=== PATIENT | female | born 1955 | race Caucasian/White ===

== ENCOUNTER 2017-07-05 17:44 | Observation (INO) ==
--- NOTE | 2017-07-05 18:46 | XRay Report ---
Portable chest July 05, 2017 1826 hours Indication shortness of breath Comparison images dated January 17, 2017 Findings: Cardiomediastinal contours are stable with sternotomy wires No change in pacemaker placement. Lungs are clear bilaterally. No acute osseous abnormalities. Impression: No acute cardiopulmonary findings PROCEDURE INTERPRETED AT [facility] DEPARTMENT OF RADIOLOGY Final Report Signed by: Juan Miller
[2017-07-05 19:42] LABS: Basophils % 0.7 % (0.0-0.8); Eosinophils # 0.1 10*3/uL (0.0-0.87); Eosinophils % 2.4 % (0.00-10.9); Hematocrit 28.1 VOL% (35.7-47.0); Hemoglobin 8.2 GM/DL (12.0-16.0); Immature Granulocytes % 0.2 %; Immature Granulocytes Absolute 0.01 #; Lymphocytes # 1.3 10*3/uL (1.4-4.0); Lymphocytes % 29.5 % (21.3-54.2); Mean Corpuscular HGB Conc 29.2 GM/DL (32-36); Mean Corpuscular Hemoglobin 19 PG (27-34); Mean Corpuscular Volume 64.2 FL (87-102); Monocytes # 0.3 10*3/uL (0.11-0.8); Neutrophils # 2.7 10*3/uL (1.4-7.4); Neutrophils % 60.2 % (38.7-73.9); Platelet Count 209 T/CUMM (130-400); Red Blood Count 4.38 MC/CUMM (3.8-5.5); Red Cell Distribution Width 22.4 % (9.3-17.3); White Blood Count 4.5 T/CUMM (4-12)
[2017-07-05 20:03] LABS: Apearance,Urine CLEAR (Clear); Bilirubin,Urine Negative (Negative); Blood, Urine Small mg/dL (Negative); Glucose,Urine (UA) Negative (Negative); Hyaline Casts,Urine 11 /LPF (0-3); Ketones,Urine Negative (Negative); Mucus,Urine Occasional /LPF (Occasional); Nitrite,Urine Negative (Negative); Protein,Urine Negative; RBC,Urine 3 /HPF (0-4); Squamous Epithelial Cell,Urine Occasional /HPF (0-10); Urine Color Yellow (Yellow); Urine Urobilinogen < 2.0 EU/DL (0.2-1.0); WBC,Urine 2 /HPF (0-6)
[2017-07-05 20:12] LABS: Alanine Aminotransferase 13 U/L (13-56); Albumin 3.6 G/DL (3.4-5.0); Alkaline Phosphatase 69 U/L (45-117); Aspartate Amino Transferase 16 U/L (0-37); Bilirubin,Total < 0.39 MG/DL (0.2-1.0); Blood Urea Nitrogen 31 MG/DL (7-18); Calcium 8.7 MG/DL (8.5-10.1); Glucose 98 MG/DL (74-106); Magnesium 2.3 MG/DL (1.8-2.4); Osmolality,Calculated 292.8 MOS/KG (273-304); Potassium 3.9 MMOL/L (3.5-5.1); Sodium 144 MMOL/L (136-145); Total Protein 6.8 G/DL (6.4-8.3)
--- NOTE | 2017-07-05 20:42 | Emergency Department Note ---
Bubba Cueto Brooke, am scribing for, and in the presence of, Sanjay Chino MD 19:01. Matti Cueto Frederick, MD, personally performed the services described in this documentation, ascribed by Ritu Mac in my presence, and it is both accurate and complete . Arrival - Arrival Chief Complaint: Fall Stated Complaint: s/f fell on pacemaker site.can hardly move Lt side ED Nursing Triage Note: c/o falling on pacemaker, weakness, and chest pain since falling ealier today. Mode of Arrival: Wheelchair Limitations: No Limitations Source: Patient, Significant other (), RN Notes Reviewed Time Seen by Provider: 07/05/17 18:41 - History of Present Illness HPI Narrative: Patient is a 61 year old female who presents to the ED with c/o left chest pain , left hip pain, and left knee pain. Patient says she has been having frequent falls since Wednesday. Patient says on the first fall, she was on the top of her stairs and lost her balance and feel down seven concrete stairs. She says she landed face down onto the concrete. She immediately started having pain where her pacemaker is located, in the left chest. She say she screamed, in pain, when she feel. She says her left breast is very tender and she "can't stand for it to be touched." She says there is some edema around the pacemaker. She also hurt her left hip and left knee when she feel. She says there is some edema to the left knee. When she finally got up, she says she "started spinning, and as she was walking into her living room, from outside, and feel again. Patient says she also feel two times this morning and almost feel while in the waiting room. She denies hitting her head with any of the falls. Her states that "she starts shaking" and then "goes out" prior to the falls. Patient states "I think this is happening when I'm nervous." She has been taking Ibuprofen for the pain. Patient has PMHx of afib, CAD, depression, migraines, seizures, glaucoma, and back/neck problems. Her Casing Builder is Dr. So. The pacemaker was placed eight months ago. Onset (ago): day(s) (3) Allergies/Adverse Reactions: Allergies Allergy/AdvReac Type Severity Reaction Status Date / Time cephalexin [From Keflex] Allergy Intermediate RASH Verified 07/05/17 17:55 atorvastatin [From Lipitor] AdvReac Intermediate Gastrointestinal Verified 07/05 17:55 Upset ranolazine [From Ranexa] AdvReac Intermediate Confusion Verified 07/05/17 17:55 Home Medications: Home Medications Medication Instructions Recorded Confirmed Type Aspirin EC Tab 81 mg PO DAILY #30 tablet 08/20/16 05/04/17 Rx Pantoprazole Tab [Protonix Tab] 40 mg PO DAILY #30 tablet 08/20/16 05/04/17 Rx Clorazepate [Tranxene] 3.75 mg PO BID #30 tablet 01/17/17 05/04/17 Rx Ketorolac Tab [Toradol Tab] 10 mg PO Q8H #14 tablet 05/05/17 Rx Review of System - Review of System 12 point system: reviewed and no additional remarkable complaints except as stated - Review of System Constitutional: Absent: fever Respiratory: Absent: respiratory distress Cardiovascular: Present: chest pain (left- pacemaker site) Musculoskeletal: Present: other (left knee and hip pain) Skin: Absent: rash Medical,Surgical,& Family Hx - Medical History Cardio: History of: CAD (status post CABG 3S/P CABG x 3 10 - 11 years prior), Pacemaker No history of: [place] Psychological: History of: Depression Neurology: History of: Migraine, Seizures (10/2015) No history of: TIA HEENT: History of: Glaucoma Endocrine: No history of: Diabetes Mellitus (IDDM), Dyslipidemia Rheumatology: No history of;: Fibromyalgia Gastrointestinal: History of: GI Problems Musculoskeletal: History of: Back/Neck Problems Hematology: No history of: Blood Transfusion Reaction, Clotting Problems Reproductive: No history of: Breast Cancer - Surgical History Cardiac Surgeries: Sugical HX of: Cardiac Catheterization, Cardiac Surgery Thoracic Surgeries: Patient denies;: Organ Transplant, Lobectomy Neurologic Surgeries: Patient denies: Neurologic Surgery Abdominal Surgeries: Surgical HX of: Abdominal Surgery, Appendectomy, Cholecystectomy, Colonoscopy, EGD, Hernia Repair Reproductive Surgeries: Surgical HX of;: Hysterectomy - Family History Family History: Reports;: Family Heart Disease, Family Stroke - Social History Smoking Status: Current every day smoker Frequency of Alcohol Use: None Type of Drug Use: None Exam Vital Signs: Vital Signs Temperature 99 F 07/05/17 18:33 Pulse Rate 69 07/05/17 18:33 Respiratory Rate 20 07/05/17 18:33 Blood Pressure 152/50 07/05/17 18:33 O2 Sat by Pulse Oximetry 100 07/05/17 17:51 - General General appearance: alert, in no apparent distress - Head Head exam: Present: atraumatic, normocephalic - Eye Eye exam: Present: normal appearance, PERRL, EOMI - ENT ENT exam: Present: normal exam - Neck Neck exam: Present: normal inspection - Chest Chest inspection: Present: symmetric chest wall rise, tenderness (slight tenderness to the left chest- pacemaker site ) - Respiratory Respiratory exam: Present: normal lung sounds bilaterally - Cardiovascular Cardiovascular exam: Present: regular rate, normal rhythm, normal heart sounds - Abdominal Exam Abdominal exam: Present: soft, normal bowel sounds. Absent: distention, tenderness - Extremities Exam Extremities exam: Present: normal inspection - Back Exam Back exam: Present: normal inspection - Neurological Exam Neurological exam: Present: alert, oriented X3 - Psychiatric Psychiatric exam: Present: normal affect, normal mood - Skin Skin exam: Present: warm, dry, intact, normal color, other (No edema, erythema, or increased temperature to left chest- pacemaker site.) Results - Labs CBC & BMP: 07/05/17 19:16 07/05/17 19:16 Lab Results: I have reviewed the patients labs Labs: Laboratory Tests 02/26/16 02/26/16 07/05/17 00:00 01:15 19:16 WBC 4.5 RBC 4.38 Hgb 8.2 L Hct 28.1 L MCV 64.2 L MCH 19 L MCHC 29.2 L RDW 22.4 H Plt Count 209 MPV 10.0 Neut % (Auto) 60.2 Lymph % (Auto) 29.5 [place] % (Auto) 7.0 Eos % (Auto) 2.4 Baso % (Auto) 0.7 Neut # (Auto) 2.7 Lymph # (Auto) 1.3 L [place] # (Auto) 0.3 Eos # (Auto) 0.1 Baso # (Auto) 0.0 Immature Gran % 0.2 Nucleated RBC % 0.0 Immature Gran # 0.01 Nucleated RBCs # 0.00 Immature Plt Fraction 2.5 INR PT Patient/Control Mix ABG pCO2 24.0 L ABG pO2 136.0 H ABG HCO3 17.2 L ABG Total CO2 13.8 L ABG Base Excess -9.0 L Chloride 121 H Carbon Dioxide 16 L BUN 29 H Creatinine 1.25 H BUN/Creatinine Ratio 23.00 H Calcium 7.8 L Globulin 3.6 H Albumin/Globulin Ratio 0.9 L Urine Color Urine Appearance Urine pH Ur Specific [place] Urine Protein Urine Glucose (UA) Urine Ketones Urine Blood Urine Nitrate Urine Bilirubin Urine Urobilinogen Urine Leukocytes Urine RBC Urine WBC Ur Squamous Epith Cells Hyaline Casts Urine Mucus Ur Culture Indicated? 07/05/17 07/05/17 19:16 19:16 WBC RBC Hgb Hct MCV MCH MCHC RDW Plt Count MPV Neut % (Auto) Lymph % (Auto) [place] % (Auto) Eos % (Auto) Baso % (Auto) Neut # (Auto) Lymph # (Auto) [place] # (Auto) Eos # (Auto) Baso # (Auto) Immature Gran % Nucleated RBC % Immature Gran # Nucleated RBCs # Immature Plt Fraction INR 1.0 PT Patient/Control Mix 11.0 ABG pCO2 ABG pO2 ABG HCO3 ABG Total CO2 ABG Base Excess Chloride Carbon Dioxide BUN Creatinine BUN/Creatinine Ratio Calcium Globulin Albumin/Globulin Ratio Urine Color Yellow Urine Appearance Clear Urine pH 5.0 Ur Specific [place] 1.020 Urine Protein Negative Urine Glucose (UA) Negative Urine Ketones Negative Urine Blood Small Urine Nitrate Negative Urine Bilirubin Negative Urine Urobilinogen < 2.0 H Urine Leukocytes Negative Urine RBC 3 Urine WBC 2 Ur Squamous Epith Cells Occasional Hyaline Casts 11 Urine Mucus Occasional Ur Culture Indicated? Not indicated Laboratory Tests 07/05/17 07/05/17 19:16 19:16 Sodium 144 Potassium 3.9 Chloride 118 H Carbon Dioxide 21 Anion Gap 8.9 BUN 31 H Creatinine 1.10 H GFR Calculation 41 BUN/Creatinine Ratio 28.00 H Glucose 98 Calculated Osmolality 292.8 Calcium 8.7 Magnesium 2.3 Total Bilirubin < 0.39 AST 16 ALT 13 Alkaline Phosphatase 69 Total Protein 6.8 Albumin 3.6 Globulin 3.2 Albumin/Globulin Ratio 1.1 Prolactin 8.1 - Diagnostic Findings Procedure: Chest x-ray: report reviewed by me (No acute cardiopulmonary findings.)
[2017-07-05] MEDS ORDERED: CLORAZEPATE 3.75 MG TABLET PO SCH (21:30)
[2017-07-05 21:42] LABS: Hypochromasia 1+; Ovalocytes Few; Poikilocytosis 1+; Tear Drop Cells Few
[2017-07-05 21:43] LABS: Microcytosis 2+; Platelet Estimate Normal
--- NOTE | 2017-07-06 05:56 | EKG Report ---
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
[2017-07-06] MEDS ORDERED: DOCUSATE SODIUM 100 MG CAPSULE PO PRN (08:43)
[2017-07-06] MEDS ORDERED: guaiFENesin/DM ER 600-30 MG TABLET PO PRN (08:43)
[2017-07-06] MEDS ORDERED: ONDANSETRON 4 MG/2 ML VIAL IV PRN (08:43)
[2017-07-06] MEDS ORDERED: diphenhydrAMINE CAP 25 MG CAPSULE PO PRN (08:43)
[2017-07-06] MEDS ORDERED: SODIUM CHLORIDE 0.9% 1,000 ML IV ONE (08:43)
[2017-07-06] MEDS ORDERED: MORPHINE 2 MG/1 ML SYRINGE IV PRN (08:43)
[2017-07-06] MEDS ORDERED: PROMETHAZINE 25 MG TABLET PO PRN (08:43)
[2017-07-06] MEDS ORDERED: ACETAMINOPHEN 325 MG TABLET PO PRN ×2 (08:43)
--- NOTE | 2017-07-06 08:57 | Hospitalist History & Physical ---
Assessment and Plan - Time spent with patient Time spent with patient: Greater than 30 minutes (1) CAD (coronary artery disease) Status: Chronic Assessment and plan: 61-year-old white female with history of CAD status post CABG, anxiety, GERD, esophageal stricture, and pacemaker placement admitted by the hospitalist service status post fall with left wall atypical chest pain. We will go ahead and consult cardiology for pacemaker interrogation. Patient did state there was something wrong with the leads on her last admission that she never followed up for. Will also get a left shoulder x-ray to rule out bony abnormality due to her increased pain and decreased shoulder range of motion. Consult physical therapy for evaluation due to patient's complaints of generalized weakness and bilateral upper and lower extremity shakiness causing her to fall. Also checking orthostatics to see if this could be a cause of her weakness and falls. Will control her anxiety with some as needed Ativan, control pain with mild narcotic and simultaneous nausea medication. Will await cardiology's recommendation and if all goes well she could possibly be discharged home later today. Dr. Lee we will see and examine patient and further recommendations to follow. Current Visit: No (2) Tobacco abuse Status: Chronic Current Visit: No (3) Atypical chest pain Status: Resolved Current Visit: No (4) Pacemaker Problem details: BSC, EOL DDD PM Status: Chronic Current Visit: No (5) Hypotension Status: Resolved Current Visit: No (6) Anxiety Status: Chronic Current Visit: No (7) Elevated serum creatinine Status: Acute Current Visit: No History of Present Illness Chief complaint: Fall with left chest pain History of present illness: Ms. Raza is a 61 year old white female with history of CAD status post CABG, GERD, esophageal strictures, anxiety, status post pacemaker placement presenting to the ED with right chest wall pain status post fall. Patient states over the last month she has had increasing weakness and jittery feelings in her upper and lower extremities to the point where she has to sit on the floor or else she will fall. She states she does not lose consciousness or does not have dizziness. She denies any hematemesis or hematochezia. She states a day and a half ago she was walking up the stairs when she got jittery and she fell and tumbled down the stairs. She states both of her knees hurt and the biggest complaint is her left chest wall where her pacemaker was placed. It hurts her to take a deep breath or lift her arms above chest height. Patient has seen Dr. Collazo in the past and was supposed to follow- up in [place] but she states she is not returning to [place] and would like to be plugged back in with Dr. Collazo's group. She also states there was something wrong with her pacemaker last time she was here and she was supposed to get it fixed and never followed up. Upon exam, patient is awake and alert. She is afebrile and her vital signs are stable. She does have some mild hypotension this morning. She is anemic at 8.2/28.1, creatinine mildly elevated at 1.1, UA and drug screen are negative. Patient has tenderness around the pacemaker with no signs of edema or erythema. She does have pain with deep breathing and with left arm elevation above 80. Patient's home medications have been reconciled and she is a full code. Home Medications Medication Instructions Recorded Confirmed Type Pantoprazole Tab [Protonix Tab] 40 mg PO DAILY #30 tablet 08/20/16 07/06/17 Rx Allergies Allergy/AdvReac Type Severity Reaction Status Date / Time cephalexin [From Keflex] Allergy Intermediate RASH Verified 07/05/17 17:55 atorvastatin [From Lipitor] AdvReac Intermediate Gastrointestinal Verified 07/05 17:55 Upset ranolazine [From Ranexa] AdvReac Intermediate Confusion Verified 07/05/17 17:55 Medical,Surgical,& Family Hx - Medical History Cardio: History of: CAD (status post CABG 3S/P CABG x 3 10 - 11 years prior), Pacemaker No history of: [place] Psychological: History of: Depression Neurology: History of: Migraine, Seizures (10/2015) No history of: TIA HEENT: History of: Glaucoma Endocrine: No history of: Diabetes Mellitus (IDDM), Dyslipidemia Rheumatology: No history of;: Fibromyalgia Gastrointestinal: History of: GI Problems Musculoskeletal: History of: Back/Neck Problems Hematology: No history of: Blood Transfusion Reaction, Clotting Problems Reproductive: No history of: Breast Cancer - Surgical History Cardiac Surgeries: Sugical HX of: Cardiac Catheterization, Cardiac Surgery Thoracic Surgeries: Patient denies;: Organ Transplant, Lobectomy Neurologic Surgeries: Patient denies: Neurologic Surgery Abdominal Surgeries: Surgical HX of: Abdominal Surgery, Appendectomy, Cholecystectomy, Colonoscopy, EGD, Hernia Repair Reproductive Surgeries: Surgical HX of;: Gynecologic Surgery, Hysterectomy - Family History Family History: Reports;: Family Heart Disease, Family Stroke - Social History Smoking Status: Current every day smoker Frequency of Alcohol Use: None Type of Drug Use: None Marital Status: Lives With:: Spouse Functional capacity: independent ambulation 12 point system: reviewed and no additional remarkable complaints except as stated Exam - Constitutional Vitals: Period Temp Pulse Resp BP Sys/Street Pulse Ox Last 24 Hr 97.2 F-99.0 F 60-69 16-20 88-152/46-62 94-100 Exam: 61-year-old white female, no acute distress, alert and oriented Extraocular movements intact Mucous membranes dry, tongue midline Neck without adenopathy Chest clear to auscultation bilaterally, tenderness at pacemaker site, no erythema, no edema CV regular rate and rhythm no murmurs rubs or gallops Abdomen scaphoid, nontender Pelvis nontender Extremities with no edema, no bruising noted at the knees, special tests negative, good distal pulses Conversation is rational Results - Labs CBC & BMP: 07/05/17 19:16 07/05/17 19:16 Lab Results: I have reviewed the past 24 hour labs - Impressions EKG was supraventricular rhythm, electronic atrial pacemaker, RSR in V1/V2 consistent with right ventricular conduction delay - Diagnostic Findings Procedure: Chest x-ray: report reviewed by me (No acute cardiopulmonary findings )
[2017-07-06] MEDS ORDERED: PANTOPRAZOLE 40 MG TABLET PO SCH (09:00)
[2017-07-06] MEDS ORDERED: ASPIRIN EC 81 MG TABLET PO SCH (09:00)
[2017-07-06 09:01] LABS: Troponin I Only 0.019 NG/ML (0.00-0.045)
--- NOTE | 2017-07-06 09:34 | XRay Report ---
Exam: XR shoulder 2V LT Date: 07/06/2017 8:48 AM Indication: Left shoulder pain secondary to fall Comparison: 07/06/2017 Technical: Internal/external rotation no Y scapular view Findings: Mild degenerative change present AC joint the clavicle and humeral head scapula and adjacent ribs are intact. Previous sternotomy wires are present and cardiac pacing device. ASVD is present. Mild degenerative changes present the AC joint. Impression: 1. Mild degenerative arthritic changes AC joint 2. No fracture dislocation 3. Cardiac pacing device and sternotomy wires present. ASVD is present. PROCEDURE INTERPRETED AT [facility] DEPARTMENT OF RADIOLOGY Final Report Signed by: Dr. Hemant Owusu
[2017-07-06] MEDS: ENOXAPARIN 40 MG/0.4 ML SYRINGE SUBCUT SCH (10:01)
[2017-07-06] MEDS: PANTOPRAZOLE 40 MG TABLET PO SCH (10:01)
[2017-07-06] MEDS: NICOTINE 21 MG/24 HR PATCH TRANSDERM PRN (10:18)
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
[2017-07-06] MEDS: SODIUM CHLORIDE 0.9% 1,000 ML IV SCH ×2 (11:25→21:45)
[2017-07-06] MEDS ORDERED: LORazepam 0.5 MG TABLET PO PRN (12:20)
[2017-07-06 14:06] LABS: Basophils % 0.7 % (0.0-0.8); Eosinophils # 0.2 10*3/uL (0.0-0.87); Eosinophils % 5.2 % (0.00-10.9); Hematocrit 25.1 VOL% (35.7-47.0); Hemoglobin 7.2 GM/DL (12.0-16.0); Lymphocytes # 0.9 10*3/uL (1.4-4.0); Lymphocytes % 30.3 % (21.3-54.2); Mean Corpuscular HGB Conc 28.7 GM/DL (32-36); Mean Corpuscular Hemoglobin 19 PG (27-34); Mean Corpuscular Volume 64.4 FL (87-102); Mean Platelet Volume 9.9 FL (9.6-12.0); Monocytes # 0.2 10*3/uL (0.11-0.8); Monocytes % 6.2 % (1.7-12.7); Neutrophils # 1.8 10*3/uL (1.4-7.4); Neutrophils % 57.6 % (38.7-73.9); Platelet Count 183 T/CUMM (130-400); Red Cell Distribution Width 22.5 % (9.3-17.3); White Blood Count 3.1 T/CUMM (4-12)
[2017-07-06 15:52] LABS: Sedimentation Rate-Westergren 9 MM/HR (0-30)
[2017-07-06 15:53] LABS: Vitamin B12 288 PG/ML (211-911)
[2017-07-06 16:08] LABS: Barbiturates Screen,Urine Negative (Negative); Benzodiazepines Screen,Urine Negative (Negative); Cannabinoid Screen,Urine Negative (Negative); Opiate Screen,Urine Positive (Negative); Phencyclidine Screen,Urine Negative (Negative)
--- NOTE | 2017-07-06 16:57 | Ultrasound Report ---
Exam:US carotid duplex BI Date:07/06/2017 1:50 PM Indication: Syncope Color Doppler, wave form analysis, and grayscale analysis of the cervical carotid arteries was performed. There is moderate partially calcified plaque in the right carotid bulb. Waveform analysis shows proper directional flow of the cervical carotid arteries. There is antegrade flow in either vertebral artery. There is elevated peak systolic velocity in the right internal carotid artery with some mild spectral broadening compatible with 50-79% diameter reduction narrowing. There is no significantly elevated peak systolic velocity on the left. Impression: There is 50-79% diameter reduction narrowing of right internal carotid artery using indirect NASCET criteria. There is 16-49% diameter reduction narrowing of the left internal carotid artery. Right Side Flow velocities centimeters per second Common carotid artery:116.0 Proximal ICA:162.4 Distal ICA:99.7 External carotid artery:76.4 Vertebral artery:87.3 ICA/CCA ratio:1.4 Measurements in millimeters Distal ICA: 4.4 Left SIde Flow velocities centimeters per second Common carotid artery 106.6 Proximal ICA:72.5 Distal ICA:127.5 External carotid artery:108.1 Vertebral artery:37.8 ICA/CCA ratio: 1.2 Measurements in millimeters Distal ICA: 4.1 Today studies were performed utilizing indirect NASCET criteria PROCEDURE INTERPRETED AT [facility] DEPARTMENT OF RADIOLOGY Final Report Signed by: Dr. Eugenia Tang
[2017-07-06] MEDS: ASPIRIN EC 81 MG TABLET PO SCH (18:05)
[2017-07-07] MEDS: SODIUM CHLORIDE 0.9% 1,000 ML IV SCH ×3 (04:40→21:05)
[2017-07-07 05:29] LABS: Basophils % 0.8 % (0.0-0.8); Eosinophils # 0.1 10*3/uL (0.0-0.87); Eosinophils % 5.4 % (0.00-10.9); Hematocrit 26.3 VOL% (35.7-47.0); Hemoglobin 7.5 GM/DL (12.0-16.0); Lymphocytes # 1.1 10*3/uL (1.4-4.0); Lymphocytes % 45.4 % (21.3-54.2); Mean Corpuscular HGB Conc 28.5 GM/DL (32-36); Mean Corpuscular Hemoglobin 18 PG (27-34); Mean Corpuscular Volume 64.3 FL (87-102); Mean Platelet Volume 9.8 FL (9.6-12.0); Monocytes # 0.2 10*3/uL (0.11-0.8); Monocytes % 7.5 % (1.7-12.7); Neutrophils % 40.9 % (38.7-73.9); Platelet Count 147 T/CUMM (130-400); Red Blood Count 4.09 MC/CUMM (3.8-5.5); Red Cell Distribution Width 22.5 % (9.3-17.3); White Blood Count 2.4 T/CUMM (4-12)
[2017-07-07 05:59] LABS: Eosinophils 6 % (0-10); Giant Platelets Few; Hypochromasia 1+; Lymphocytes 39 % (20-55); Ovalocytes Slight; Platelet Estimate Normal; Segmented Neutrophils 51 % (50-85); Total Cells Counted 100
[2017-07-07 06:00] LABS: Microcytosis Slight
[2017-07-07 06:08] LABS: Risk Ratio 4.62; VLDL CHOLESTEROL 33.4 MG/DL
[2017-07-07 06:19] LABS: Calcium 7.5 MG/DL (8.5-10.1); Osmolality,Calculated 288.4 MOS/KG (273-304); Potassium 3.7 MMOL/L (3.5-5.1)
[2017-07-07] MEDS ORDERED: SODIUM CHLORIDE 0.9% 250 ML IV PRN ×2 (07:00→13:18)
--- NOTE | 2017-07-07 08:16 | Cardiology Progress Note ---
<Robina Bill - Last Filed: 07/07/17 09:54> Assessment and Plan (1) Atypical chest pain Status: Acute Assessment and plan: SEE PLAN OF CARE LISTED BELOW. Current Visit: Yes (2) Dehydration Status: Acute Assessment and plan: SEE PLAN OF CARE LISTED BELOW. Current Visit: Yes (3) Anemia Status: Chronic Assessment and plan: SEE PLAN OF CARE LISTED BELOW. Current Visit: Yes (4) Anxiety Status: Chronic Assessment and plan: SEE PLAN OF CARE LISTED BELOW. Current Visit: No (5) CAD (coronary artery disease) Status: Chronic Assessment and plan: SEE PLAN OF CARE LISTED BELOW. Current Visit: No (6) Pacemaker Problem details: BSC, EOL DDD PM Status: Chronic Assessment and plan: SEE PLAN OF CARE LISTED BELOW. Current Visit: No (7) Tobacco abuse Status: Chronic Assessment and plan: SEE PLAN OF CARE LISTED BELOW. Current Visit: No (8) Hypotension Status: Acute Assessment and plan: SEE PLAN OF CARE LISTED BELOW. Current Visit: Yes (9) Pre-syncope Status: Acute Assessment and plan: SEE PLAN OF CARE LISTED BELOW. 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 So SUMMARY Ms. Raza is a 61 year old female with a known history of coronary artery disease, who has seen Dr. Claudia So in the past. Patient has cardiac risk factors significant for: Known CAD (status post CABG 11 years ago in [facility]), sedentary lifestyle, family and tobaccoism. She has a past medical history of anxiety and pacemaker placement January 2016. Patient has not followed up with Dr. So in the clinic as instructed. Her last echocardiogram was performed January 2016 which revealed ejection fraction 60%. Grade 1 diastolic dysfunction. Moderate to severe TR and mild to moderate MR. Patient presented to [facility] with left-sided chest pain that occurred after falling at home. She confirms several episodes of presyncope. Upon arrival to the emergency department, she was noted to be hypotensive, anemic and dehydrated. Her anemia appears to be chronic. She was rehydrated with IV fluids. Her blood pressure has improved. Her chest pain is atypical in nature. Reproducible to light palpation. Consistent with musculoskeletal type pain. Successfully treated with pain medications. Patient 's pacemaker was interrogated yesterday afternoon per [employer] utility sales representative. Her device checked out fine. No arrhythmias noted the day of fall. She did have a short episode of nonsustained SVT July 03, 2017. 2016 Patient was seen and examined on the telemetry unit. She is doing well this morning. No complaints. She reports that her left-sided chest pain has greatly improved with [place]. Carotid ultrasound yesterday revealed 50-79% narrowing of her right internal carotid artery. Today, we will order carotid CTA. She continues to be anemic this morning. H&H 7.5 and 26.3. I suspect that this could possibly be dilutional. Stool negative for occult blood. Pacemaker was interrogated yesterday which checked out okay. No evidence of sustained arrhythmias noted the day of fall. Blood pressure has greatly improved with IV hydration. Orthostatic vital signs did not reveal any evidence of orthostatic hypotension. At this point, if patient's carotid CT checks out okay patient may be eligible for discharge later this afternoon. Patient has a given a follow-up appointment with Dr. Claudia So in 1 month with EKG and CBC. I will further discuss with Dr. So and await her additional recommendations. IMPRESSION AND PLAN 1. ATYPICAL CHEST PAIN - Reproducible. I suspect that this is musculoskeletal in nature. Secondary to patient's fall Wednesday evening. This is being treated with [place] per hospital medicine. 2. HISTORY OF CAD - Status post CABG 11 years ago in [facility]. Patient's blood pressure will not allow initiation of beta blockade. She has been noncompliant with lipid lowering agent in the past as this has caused her myalgias. I have checked a lipid panel. I have added low-dose aspirin. Recommend patient take this indefinitely. Historically, patient has had preserved ejection fraction. No need to repeat echocardiogram at this time. 3. TOBACCO ABUSE - Counseled patient on the importance of smoking cessation. 4. PACEMAKER - Chest x-ray reveals good pacemaker lead placement. No hematoma or trauma located to pacemaker pocket. Device was interrogated yesterday. No sustained arrhythmias noted the day of fall. However, she did have a short episode of nonsustained SVT July 03, 2017. Unfortunately, her blood pressure will not allow for initiation of beta blockade. This may be challenged on an outpatient basis. 5. ANXIETY - Stable at present. 6. HYPOTENSION - Improved with IV hydration. 7. PRESYNCOPE - I suspect that this could be related to her dehydration/ hypotension and anemia. Patient was treated with IV fluids. Blood pressure has improved this morning. Orthostatic vital signs were okay. Carotid ultrasound revealed 50-79% narrowing of her right internal carotid artery. Will order carotid CTA. Pacemaker was interrogated yesterday. No sustained arrhythmias noted the day of fall. However, she did have a short episode of nonsustained SVT July 03, 2017. Unfortunately, her blood pressure will not allow for initiation of beta blockade. This may be challenged on outpatient basis. 8. ANEMIA - This appears to be chronic. H&H 7.5 and 26.3. I suspect that this is dilutional. Stool negative for occult blood. I will defer further management/workup of this to attending. Patient may benefit from blood transfusion/GI evaluation. 9. DEHYDRATION - This has greatly improved with IV hydration. 10. RIGHT INTERNAL CAROTID ARTERY STENOSIS - Carotid ultrasound revealed 50-79 % narrowing to her right internal carotid artery. At this point, we will order CTA. 11. DYSLIPIDEMIA - Lipid panel has been reviewed. LDL 106. Patient is allergic to atorvastatin. I have initiated Zetia. Patient will need a repeat lipid panel in 4-6 weeks. Exam (Progress Note) - Constitutional Vitals: Period Temp Pulse Resp BP Sys/Street Pulse Ox Last 24 Hr 97.3 F-98.7 F 59-61 16-20 86-120/44-69 92-99 Exam: General: Appears well with no apparent distress. Pleasant and cooperative. Appears comfortable. HEENT: PERRL, normocephalic, atraumatic. Mucous membranes moist. No jaundice noted. Conjunctiva moist and clear, sclerae anicteric Neck: No JVD/HJR, no thyromegaly or lymphadenopathy noted. Soft right carotid bruit Cardiac: Regular rate and rhythm. Patient is tender to pacemaker site. No erythema. No edema. Lungs: Clear to auscultation without accessory muscle use to assist the respiratory pattern. Not requiring oxygen. Abdomen: Soft, bowel sounds normoactive. Nontender and nondistended. No abdominal bruit or thrill noted. No masses noted. Extremities: No clubbing, cyanosis noted. No edema noted. Upper extremity pulses 2+. Lower extremity pulses 2+. Capillary refill less than 3 seconds. Skin: No unusual lesions or rashes. No skin breakdown appreciated. Neuro: Awake, alert and oriented 3. Moves all extremities well without hemiparesis or paralysis. No essential tremor is appreciated. Result/EKG - Labs CBC & BMP: 07/07/17 04:22 07/07/17 04:22 Lab Results: I have reviewed the past 24 hour labs Labs: Laboratory Results - last 24 hr 07/06/17 07/06/17 07/06/17 08:18 13:57 13:57 WBC 3.1 L D RBC 3.90 Hgb 7.2 L Hct 25.1 L MCV 64.4 L MCH 19 L MCHC 28.7 L RDW 22.5 H Plt Count 183 MPV 9.9 Neut % (Auto) 57.6 Lymph % (Auto) 30.3 [place] % (Auto) 6.2 Eos % (Auto) 5.2 Baso % (Auto) 0.7 Neut # (Auto) 1.8 Lymph # (Auto) 0.9 L [place] # (Auto) 0.2 Eos # (Auto) 0.2 Baso # (Auto) 0.0 Total Counted Immature Gran % 0.0 Nucleated RBC % 0.0 Immature Gran # 0.00 Segmented Neutrophils Lymphocytes Monocytes Eosinophils Basophils Nucleated RBCs # 0.00 Platelet Estimate Giant Platelets Immature Plt Fraction 0.0 Hypochromasia Microcytosis Ovalocytes ESR Westergren 9 Absolute Retic 0.1 Percent Retic 1.6 H Retic Hgb Equivalent 18.9 L Sodium Potassium Chloride Carbon Dioxide Anion Gap BUN Creatinine GFR Calculation BUN/Creatinine Ratio Glucose Calculated Osmolality Calcium Magnesium Ferritin 3.2 L Total Creatine Kinase 185 CK-MB (CK-2) 1.0 Troponin I 0.019 Triglycerides Cholesterol LDL Cholesterol VLDL Cholesterol HDL Cholesterol Heart Disease Risk Ratio Vitamin B12 Folate Urine Opiates Screen Ur Barbiturates Screen Ur Phencyclidine Scrn U Amphetamine/Methamph U Benzodiazepines Scrn U Cocaine Metab Screen U Cannabinoids Screen LATOYA (IgG-AHG) LATOYA, Polyspecific 07/06/17 07/06/17 07/06/17 13:57 13:57 15:54 WBC RBC Hgb Hct MCV MCH MCHC RDW Plt Count MPV Neut % (Auto) Lymph % (Auto) [place] % (Auto) Eos % (Auto) Baso % (Auto) Neut # (Auto) Lymph # (Auto) [place] # (Auto) Eos # (Auto) Baso # (Auto) Total Counted Immature Gran % Nucleated RBC % Immature Gran # Segmented Neutrophils Lymphocytes Monocytes Eosinophils Basophils Nucleated RBCs # Platelet Estimate Giant Platelets Immature Plt Fraction Hypochromasia Microcytosis Ovalocytes ESR Westergren Absolute Retic Percent Retic Retic Hgb Equivalent Sodium Potassium Chloride Carbon Dioxide Anion Gap BUN Creatinine GFR Calculation BUN/Creatinine Ratio Glucose Calculated Osmolality Calcium Magnesium Ferritin Total Creatine Kinase CK-MB (CK-2) Troponin I Triglycerides Cholesterol LDL Cholesterol VLDL Cholesterol HDL Cholesterol Heart Disease Risk Ratio Vitamin B12 288 Folate 14.0 Urine Opiates Screen Positive H Ur Barbiturates Screen Negative Ur Phencyclidine Scrn Negative U Amphetamine/Methamph Negative U Benzodiazepines Scrn Negative U Cocaine Metab Screen Negative U Cannabinoids Screen Negative LATOYA (IgG-AHG) Negative LATOYA, Polyspecific Negative 07/07/17 07/07/17 07/07/17 04:22 04:22 04:22 WBC 2.4 L RBC 4.09 Hgb 7.5 L Hct 26.3 L MCV 64.3 L MCH 18 L MCHC 28.5 L RDW 22.5 H Plt Count 147 MPV 9.8 Neut % (Auto) 40.9 Lymph % (Auto) 45.4 [place] % (Auto) 7.5 Eos % (Auto) 5.4 Baso % (Auto) 0.8 Neut # (Auto) 1.0 L Lymph # (Auto) 1.1 L [place] # (Auto) 0.2 Eos # (Auto) 0.1 Baso # (Auto) 0.0 Total Counted 100 Immature Gran % 0.0 Nucleated RBC % 0.0 Immature Gran # 0.00 Segmented Neutrophils 51 Lymphocytes 39 Monocytes 2 Eosinophils 6 Basophils 2.0 H Nucleated RBCs # 0.00 Platelet Estimate Normal Giant Platelets Few Immature Plt Fraction 0.0 Hypochromasia 1+ Microcytosis Slight Ovalocytes Slight ESR Westergren Absolute Retic Percent Retic Retic Hgb Equivalent Sodium 147 H Potassium 3.7 Chloride 120 H Carbon Dioxide 18 L Anion Gap 12.7 BUN 9 Creatinine 0.60 GFR Calculation 77 BUN/Creatinine Ratio 15.00 Glucose 68 L Calculated Osmolality 288.4 Calcium 7.5 L Magnesium 2.0 Ferritin Total Creatine Kinase CK-MB (CK-2) Troponin I Triglycerides 167 H Cholesterol 171 LDL Cholesterol 106.0 VLDL Cholesterol 33.4 HDL Cholesterol 37 L Heart Disease Risk Ratio 4.62 Vitamin B12 Folate Urine Opiates Screen Ur Barbiturates Screen Ur Phencyclidine Scrn U Amphetamine/Methamph U Benzodiazepines Scrn U Cocaine Metab Screen U Cannabinoids Screen LATOYA (IgG-AHG) LATOYA, Polyspecific Specialty Discharge - Follow Up or Referrals Follow up with: Claudia So MD [Physician] - 1 Month (EKG, CBC ) <Claudia So - Last Filed: 07/07/17 13:12> Cardiology - PN: Subj Interval history: I have personally interviewed and examined the patient, reviewed the chart and discussed medical decision-making with practitioner Fly. I have read this note and agree with the documentation herein. From a cardiac standpoint she appears to be stable with reproducible left-sided musculoskeletal chest pain. Device interrogation overall reveals satisfactory function, she did have a brief episode of SVT on July 03. She has a chronically high RV threshold but RV paces less than 1% of the time so this is not a major concern. We are going to have to get her reestablished with the device clinic at the time of discharge. She continues to have some symptomatic anemia and tells me she is still dizzy when she goes to stand. Apparently she also has some intention tremors that are significant. While she is here were going to go ahead and obtain CT scan of the carotid arteries to better define the right-sided carotid disease in terms of whether it is moderate or severe. I personally discussed this case with Dr. Lee and she may benefit from transfusion due to symptomatic anemia. She is due for a colonoscopy and ultimately will need an outpatient workup of her anemia. She does have a leukopenia so this could also represent a possible marrow process. Exam (Progress Note) - Constitutional Vitals: Period Temp Pulse Resp BP Sys/Street Pulse Ox Last 24 Hr 97.3 F-99.0 F 59-61 16-20 102-120/44-69 92-99 Result/EKG - Labs CBC & BMP: 07/07/17 04:22 07/07/17 04:22 Labs: Laboratory Results - last 24 hr 07/06/17 07/06/17 07/06/17 13:57 13:57 13:57 WBC 3.1 L D RBC 3.90 Hgb 7.2 L Hct 25.1 L MCV 64.4 L MCH 19 L MCHC 28.7 L RDW 22.5 H Plt Count 183 MPV 9.9 Neut % (Auto) 57.6 Lymph % (Auto) 30.3 [place] % (Auto) 6.2 Eos % (Auto) 5.2 Baso % (Auto) 0.7 Neut # (Auto) 1.8 Lymph # (Auto) 0.9 L [place] # (Auto) 0.2 Eos # (Auto) 0.2 Baso # (Auto) 0.0 Total Counted Immature Gran % 0.0 Nucleated RBC % 0.0 Immature Gran # 0.00 Segmented Neutrophils Lymphocytes Monocytes Eosinophils Basophils Nucleated RBCs # 0.00 Platelet Estimate Giant Platelets Immature Plt Fraction 0.0 Hypochromasia Microcytosis Ovalocytes ESR W[place]gren 9 Absolute Retic 0.1 Percent Retic 1.6 H Retic Hgb Equivalent 18.9 L Sodium Potassium Chloride Carbon Dioxide Anion Gap BUN Creatinine GFR Calculation BUN/Creatinine Ratio Glucose Calculated Osmolality Calcium Magnesium Ferritin 3.2 L Triglycerides Cholesterol LDL Cholesterol VLDL Cholesterol HDL Cholesterol Heart Disease Risk Ratio Vitamin B12 288 Folate 14.0 Urine Opiates Screen Ur Barbiturates Screen Ur Phencyclidine Scrn U Amphetamine/Methamph U Benzodiazepines Scrn U Cocaine Metab Screen U Cannabinoids Screen LATOYA (IgG-AHG) LATOYA, Polyspecific 07/06/17 07/06/17 07/07/17 13:57 15:54 04:22 WBC RBC Hgb Hct MCV MCH MCHC RDW Plt Count MPV Neut % (Auto) Lymph % (Auto) [place] % (Auto) Eos % (Auto) Baso % (Auto) Neut # (Auto) Lymph # (Auto) [place] # (Auto) Eos # (Auto) Baso # (Auto) Total Counted Immature Gran % Nucleated RBC % Immature Gran # Segmented Neutrophils Lymphocytes Monocytes Eosinophils Basophils Nucleated RBCs # Platelet Estimate Giant Platelets Immature Plt Fraction Hypochromasia Microcytosis Ovalocytes ESR Westergren Absolute Retic Percent Retic Retic Hgb Equivalent Sodium Potassium Chloride Carbon Dioxide Anion Gap BUN Creatinine GFR Calculation BUN/Creatinine Ratio Glucose Calculated Osmolality Calcium Magnesium Ferritin Triglycerides 167 H Cholesterol 171 LDL Cholesterol 106.0 VLDL Cholesterol 33.4 HDL Cholesterol 37 L Heart Disease Risk Ratio 4.62 Vitamin B12 Folate Urine Opiates Screen Positive H Ur Barbiturates Screen Negative Ur Phencyclidine Scrn Negative U Amphetamine/Methamph Negative U Benzodiazepines Scrn Negative U Cocaine Metab Screen Negative U Cannabinoids Screen Negative LATOYA (IgG-AHG) Negative LATOYA, Polyspecific Negative 07/07/17 07/07/17 04:22 04:22 WBC 2.4 L RBC 4.09 Hgb 7.5 L Hct 26.3 L MCV 64.3 L MCH 18 L MCHC 28.5 L RDW 22.5 H Plt Count 147 MPV 9.8 Neut % (Auto) 40.9 Lymph % (Auto) 45.4 [place] % (Auto) 7.5 Eos % (Auto) 5.4 Baso % (Auto) 0.8 Neut # (Auto) 1.0 L Lymph # (Auto) 1.1 L [place] # (Auto) 0.2 Eos # (Auto) 0.1 Baso # (Auto) 0.0 Total Counted 100 Immature Gran % 0.0 Nucleated RBC % 0.0 Immature Gran # 0.00 Segmented Neutrophils 51 Lymphocytes 39 Monocytes 2 Eosinophils 6 Basophils 2.0 H Nucleated RBCs # 0.00 Platelet Estimate Normal Giant Platelets Few Immature Plt Fraction 0.0 Hypochromasia 1+ Microcytosis Slight Ovalocytes Slight ESR Westergren Absolute Retic Percent Retic Retic Hgb Equivalent Sodium 147 H Potassium 3.7 Chloride 120 H Carbon Dioxide 18 L Anion Gap 12.7 BUN 9 Creatinine 0.60 GFR Calculation 77 BUN/Creatinine Ratio 15.00 Glucose 68 L Calculated Osmolality 288.4 Calcium 7.5 L Magnesium 2.0 Ferritin Triglycerides Cholesterol LDL Cholesterol VLDL Cholesterol HDL Cholesterol Heart Disease Risk Ratio Vitamin B12 Folate Urine Opiates Screen Ur Barbiturates Screen Ur Phencyclidine Scrn U Amphetamine/Methamph U Benzodiazepines Scrn U Cocaine Metab Screen U Cannabinoids Screen LATOYA (IgG-AHG) LATOYA, Polyspecific
[2017-07-07] MEDS: ENOXAPARIN 40 MG/0.4 ML SYRINGE SUBCUT SCH (09:21)
[2017-07-07] MEDS: PANTOPRAZOLE 40 MG TABLET PO SCH (09:21)
[2017-07-07] MEDS: ASPIRIN EC 81 MG TABLET PO SCH (09:21)
--- NOTE | 2017-07-07 09:54 | Discharge Summary ---
Hospital Course - Time spent with patient Time with patient DS: Greater than 30 minutes Diagnosis - Discharge Diagnosis (1) CAD (coronary artery disease) Status: Chronic (2) Tobacco abuse Status: Chronic (3) Atypical chest pain Status: Acute (4) Pacemaker Status: Chronic (5) Hypotension Status: Acute (6) Anxiety Status: Chronic (7) Elevated serum creatinine Status: Acute Specialty Discharge - Follow Up or Referrals Follow up with: Claudia So MD [Physician] - 1 Month (EKG, CBC ) Discharge Plan - Discharge Medications No Action Pantoprazole Tab [Protonix Tab] 40 mg PO DAILY #30 tablet - Follow Up or Referral Follow Up: Claudia So MD [Physician] - 1 Month (EKG, CBC ) - Forms/Instructions Exam - Constitutional Vitals: Period Temp Pulse Resp BP Sys/Street Pulse Ox Last 24 Hr 97.3 F-98.7 F 59-61 16-20 102-120/44-69 92-99 Discharge Results Procedures and tests throughout hospitalization: Pending Orders 07/06/17 13:57 Anemia Profile Routine 07/06/17 17:10 Occult Blood, Stool Routine Labs on day of discharge: Labs from last 24 hours 07/07/17 07/07/17 07/07/17 04:22 04:22 04:22 WBC 2.4 L RBC 4.09 Hgb 7.5 L Hct 26.3 L MCV 64.3 L MCH 18 L MCHC 28.5 L RDW 22.5 H Plt Count 147 MPV 9.8 Neut % (Auto) 40.9 Lymph % (Auto) 45.4 [place] % (Auto) 7.5 Eos % (Auto) 5.4 Baso % (Auto) 0.8 Neut # (Auto) 1.0 L Lymph # (Auto) 1.1 L [place] # (Auto) 0.2 Eos # (Auto) 0.1 Baso # (Auto) 0.0 Total Counted 100 Immature Gran % 0.0 Nucleated RBC % 0.0 Immature Gran # 0.00 Segmented Neutrophils 51 Lymphocytes 39 Monocytes 2 Eosinophils 6 Basophils 2.0 H Nucleated RBCs # 0.00 Anemia Panel Interp Platelet Estimate Normal Giant Platelets Few Immature Plt Fraction 0.0 Hypochromasia 1+ Microcytosis Slight Ovalocytes Slight ESR Westergren Absolute Retic Percent Retic Retic Hgb Equivalent Hemoglobin A1 Hemoglobin A2 Hemoglobin C Hemoglobin D Hemoglobin E Hemoglobin F (ELP) Hemoglobin G Hemoglobin S Hgb ELP Interp Sodium 147 H Potassium 3.7 Chloride 120 H Carbon Dioxide 18 L Anion Gap 12.7 BUN 9 Creatinine 0.60 GFR Calculation 77 BUN/Creatinine Ratio 15.00 Glucose 68 L Calculated Osmolality 288.4 Calcium 7.5 L Magnesium 2.0 Ferritin Triglycerides 167 H Cholesterol 171 LDL Cholesterol 106.0 VLDL Cholesterol 33.4 HDL Cholesterol 37 L Heart Disease Risk Ratio 4.62 Vitamin B12 Folate Urine Opiates Screen Ur Barbiturates Screen Ur Phencyclidine Scrn U Amphetamine/Methamph U Benzodiazepines Scrn U Cocaine Metab Screen U Cannabinoids Screen LATOYA (IgG-AHG) LATOYA, Polyspecific 07/06/17 07/06/17 07/06/17 15:54 13:57 13:57 WBC RBC Hgb Hct MCV MCH MCHC RDW Plt Count MPV Neut % (Auto) Lymph % (Auto) [place] % (Auto) Eos % (Auto) Baso % (Auto) Neut # (Auto) Lymph # (Auto) [place] # (Auto) Eos # (Auto) Baso # (Auto) Total Counted Immature Gran % Nucleated RBC % Immature Gran # Segmented Neutrophils Lymphocytes Monocytes Eosinophils Basophils Nucleated RBCs # Anemia Panel Interp Platelet Estimate Giant Platelets Immature Plt Fraction Hypochromasia Microcytosis Ovalocytes ESR Westergren Absolute Retic Percent Retic Retic Hgb Equivalent Hemoglobin A1 Pending Hemoglobin A2 Pending Hemoglobin C Pending Hemoglobin D Pending Hemoglobin E Pending Hemoglobin F (ELP) Pending Hemoglobin G Pending Hemoglobin S Pending Hgb ELP Interp Pending Sodium Potassium Chloride Carbon Dioxide Anion Gap BUN Creatinine GFR Calculation BUN/Creatinine Ratio Glucose Calculated Osmolality Calcium Magnesium Ferritin Triglycerides Cholesterol LDL Cholesterol VLDL Cholesterol HDL Cholesterol Heart Disease Risk Ratio Vitamin B12 288 Folate 14.0 Urine Opiates Screen Positive H Ur Barbiturates Screen Negative Ur Phencyclidine Scrn Negative U Amphetamine/Methamph Negative U Benzodiazepines Scrn Negative U Cocaine Metab Screen Negative U Cannabinoids Screen Negative LATOYA (IgG-AHG) Negative LATOYA, Polyspecific Negative 07/06/17 07/06/17 13:57 13:57 WBC 3.1 L D RBC 3.90 Hgb 7.2 L Hct 25.1 L MCV 64.4 L MCH 19 L MCHC 28.7 L RDW 22.5 H Plt Count 183 MPV 9.9 Neut % (Auto) 57.6 Lymph % (Auto) 30.3 [place] % (Auto) 6.2 Eos % (Auto) 5.2 Baso % (Auto) 0.7 Neut # (Auto) 1.8 Lymph # (Auto) 0.9 L [place] # (Auto) 0.2 Eos # (Auto) 0.2 Baso # (Auto) 0.0 Total Counted Immature Gran % 0.0 Nucleated RBC % 0.0 Immature Gran # 0.00 Segmented Neutrophils Lymphocytes Monocytes Eosinophils Basophils Nucleated RBCs # 0.00 Anemia Panel Interp Pending Platelet Estimate Giant Platelets Immature Plt Fraction 0.0 Hypochromasia Microcytosis Ovalocytes ESR Westergren 9 Absolute Retic 0.1 Percent Retic 1.6 H Retic Hgb Equivalent 18.9 L Hemoglobin A1 Hemoglobin A2 Hemoglobin C Hemoglobin D Hemoglobin E Hemoglobin F (ELP) Hemoglobin G Hemoglobin S Hgb ELP Interp Sodium Potassium Chloride Carbon Dioxide Anion Gap BUN Creatinine GFR Calculation BUN/Creatinine Ratio Glucose Calculated Osmolality Calcium Magnesium Ferritin 3.2 L Triglycerides Cholesterol LDL Cholesterol VLDL Cholesterol HDL Cholesterol Heart Disease Risk Ratio Vitamin B12 Folate Urine Opiates Screen Ur Barbiturates Screen Ur Phencyclidine Scrn U Amphetamine/Methamph U Benzodiazepines Scrn U Cocaine Metab Screen U Cannabinoids Screen LATOYA (IgG-AHG) LATOYA, Polyspecific DS: Provider Date of admission: 07/05/17 21:22 Primary care physician: . No PCP Attending physician on admission: Sanjay Chino MD Consults: 07/05/17 22:59 Consult to Dietitian [CONS] Routine Reason for Dietitian: Dietary Consult 07/06/17 08:43 Consult to Physician [CONS] Routine Comment: pain in pacemaker from fall, frequent falls Consulting Provider: Cardiology - [facility] When should Consulting Provider be notified: Now Person Notified: Alyse Date Notified: 07/06/17 Time Notified: 09:55 07/06/17 08:46 Consult to Physical Therapy [CONS] Routine Reason for Physical Therapy: Evaluate and Treat 07/06/17 10:25 Consult to Occupational Therapy [CONS] Routine Reason for Occupational Therapy: Evaluate and Treat Discharging clinician: YVES Baron Expected date of discharge: 07/07/17
[2017-07-07] MEDS: NICOTINE 21 MG/24 HR PATCH TRANSDERM PRN (11:25)
--- NOTE | 2017-07-07 13:30 | Hospitalist Progress Note ---
Assessment and Plan - Time spent with patient Time spent with patient: Less than 30 minutes (1) CAD (coronary artery disease) Status: Chronic Assessment and plan: 61-year-old white female with history of CAD status post CABG, anxiety, GERD, esophageal stricture, and pacemaker placement admitted by the hospitalist service status post fall with left wall atypical chest pain. We will go ahead and consult cardiology for pacemaker interrogation. Patient did state there was something wrong with the leads on her last admission that she never followed up for. Will also get a left shoulder x-ray to rule out bony abnormality due to her increased pain and decreased shoulder range of motion. Consult physical therapy for evaluation due to patient's complaints of generalized weakness and bilateral upper and lower extremity shakiness causing her to fall. Also checking orthostatics to see if this could be a cause of her weakness and falls. Will control her anxiety with some as needed Ativan, control pain with mild narcotic and simultaneous nausea medication. Will await cardiology's recommendation and if all goes well she could possibly be discharged home later today. Dr. Lee we will see and examine patient and further recommendations to follow. 07/07/2017 patient does feel a little better today. Carotid Doppler showed 50-79 % reduction of the right internal carotid. CTA has been ordered and is pending. Patient's orthostatic vital signs have been normal. Patient also has chronic anemia that could be resulting in her symptomology. 2 units of blood have been ordered and will be transfused today. If her CTA looks okay and she tolerates the transfusion and she is feeling better, possible discharge in the morning. She will need to follow-up with Dr. So in 1 month with an EKG and a CBC. Dr. Lee we will see and examine patient and further recommendations to follow. Current Visit: No (2) Tobacco abuse Status: Chronic Current Visit: No (3) Atypical chest pain Status: Acute Current Visit: Yes (4) Pacemaker Problem details: BSC, EOL DDD PM Status: Chronic Current Visit: No (5) Hypotension Status: Acute Current Visit: Yes (6) Anxiety Status: Chronic Current Visit: No (7) Elevated serum creatinine Status: Acute Current Visit: No Hospitalist: Subjective Interval history: Patient states she feels a little better this morning. She is still having pain at her pacemaker insertion site but she feels better to know that it is working fine. She says she still has shaking and instability of her legs that happens when no medical personnel are around. Exam - Constitutional Vitals: Period Temp Pulse Resp BP Sys/Street Pulse Ox Last 24 Hr 97.3 F-99.0 F 59-61 16-20 102-120/44-69 92-99 Exam: 61-year-old white female, no acute distress, alert and oriented Extraocular movements intact Mucous membranes dry, tongue midline Neck without adenopathy Chest clear to auscultation bilaterally, tenderness at pacemaker site, no erythema, no edema CV regular rate and rhythm no murmurs rubs or gallops Abdomen scaphoid, nontender Pelvis nontender Extremities with no edema, no bruising noted at the knees, special tests negative, good distal pulses Conversation is rational Results - Labs CBC & BMP: 07/07/17 04:22 07/07/17 04:22 Lab Results: I have reviewed the past 24 hour labs Specialty Discharge - Follow Up or Referrals Follow up with: Claudia So MD [Physician] - 1 Month (EKG, CBC )
[2017-07-07 15:24] LABS: % Iron Saturation 4.2 % (18-50)
[2017-07-07] MEDS ORDERED: EZETIMIBE 10 MG TABLET PO SCH (21:00)
[2017-07-08] MEDS: SODIUM CHLORIDE 0.9% 1,000 ML IV SCH ×2 (03:58→13:02)
[2017-07-08 07:20] LABS: Hemoglobin A1 (Alkaline) 97.9 % (96.5-98.5); Hemoglobin A2 (Alkaline) 2.1 % (1.5-3.5)
--- NOTE | 2017-07-08 08:16 | CT Report ---
CTA neck July 08, 2017 at 1721 hours Indication: Carotid bruit Comparison images not available Technique: CT angiography of the chest was performed in routine fashion after administration of intravenous contrast. 3-D reconstruction images were submitted from separate workstation. The CT exam was performed using one or more of the following dose reduction techniques: Automated exposure control, adjustment of the mA and/or kV according to patient size, or use of iterative reconstruction technique. Findings: Bovine arch. There is plaque at the origin the right brachiocephalic artery. Common carotid arteries are normal in course, caliber and enhancement without atheromatous changes through the bifurcations. Internal carotid arteries are normal in course, caliber and enhancement with minimal plaquing along the distal left internal carotid artery proximal to the petrous segment. No associated stenosis. Vertebral arteries are normal in course, caliber and enhancement without atheromatous changes. No inguinal irregularity, narrowing or stricture throughout the anterior-posterior circulation. Spondylitic changes throughout the cervicothoracic spine. Centrilobular emphysema with parenchymal density throughout the lung apices and posterior upper lobes, likely fibrosis. Thyroid gland is homogeneously enhancing. Soft tissues are unremarkable Visualized brain parenchyma is unremarkable Impression: 1. Essentially normal angiography study of the anterior and posterior circulations through the neck with minimal atheromatous changes at the distal left internal carotid artery 2. Centrilobular emphysema with irregular apical soft tissue density, all felt to represent fibrosis. Recommend correlation with dedicated CT study to further evaluate 3. Other findings as discussed above PROCEDURE INTERPRETED AT [facility] DEPARTMENT OF RADIOLOGY Final Report Signed by: Juan Miller
[2017-07-08] MEDS: ENOXAPARIN 40 MG/0.4 ML SYRINGE SUBCUT SCH ×2 (08:29→13:00)
[2017-07-08] MEDS: ASPIRIN EC 81 MG TABLET PO SCH (08:30)
[2017-07-08] MEDS: PANTOPRAZOLE 40 MG TABLET PO SCH (08:30)
--- NOTE | 2017-07-08 12:46 | Cardiology Progress Note ---
<Robina Bill - Last Filed: 07/08/17 14:09> Assessment and Plan (1) Atypical chest pain Status: Acute Assessment and plan: SEE PLAN OF CARE LISTED BELOW. (2) Dehydration Status: Acute Assessment and plan: SEE PLAN OF CARE LISTED BELOW. (3) Anemia Status: Chronic Assessment and plan: SEE PLAN OF CARE LISTED BELOW. (4) Anxiety Status: Chronic Assessment and plan: SEE PLAN OF CARE LISTED BELOW. (5) CAD (coronary artery disease) Status: Chronic Assessment and plan: SEE PLAN OF CARE LISTED BELOW. (6) Pacemaker Problem details: BSC, EOL DDD PM Status: Chronic Assessment and plan: SEE PLAN OF CARE LISTED BELOW. (7) Tobacco abuse Status: Chronic Assessment and plan: SEE PLAN OF CARE LISTED BELOW. (8) Hypotension Status: Acute Assessment and plan: SEE PLAN OF CARE LISTED BELOW. (9) Pre-syncope Status: Acute Assessment and plan: SEE PLAN OF CARE LISTED BELOW. Cardiology - PN: Subj Interval history: STONE UNLOADER: Dr. So SUMMARY Ms. Raza is a 61 year old female with a known history of coronary artery disease, who has seen Dr. Claudia So in the past. Patient has cardiac risk factors significant for: Known CAD (status post CABG 11 years ago in [facility]), sedentary lifestyle, family and tobaccoism. She has a past medical history of anxiety and pacemaker placement January 2016. Patient has not followed up with Dr. So in the clinic as instructed. Her last echocardiogram was performed January 2016 which revealed ejection fraction 60%. Grade 1 diastolic dysfunction. Moderate to severe TR and mild to moderate MR. Patient presented to [facility] with left-sided chest pain that occurred after falling at home. She confirms several episodes of presyncope. Upon arrival to the emergency department, she was noted to be hypotensive, anemic and dehydrated. Her anemia appears to be chronic. She was rehydrated with IV fluids. Her blood pressure has improved. Her chest pain is atypical in nature. Reproducible to light palpation. Consistent with musculoskeletal type pain. Successfully treated with pain medications. Patient 's pacemaker was interrogated yesterday afternoon per [employer] in store marketing representative. Her device checked out fine. No arrhythmias noted the day of fall. She did have a short episode of nonsustained SVT July 03, 2017. 2016 Patient was seen and examined on the telemetry unit. She is doing well this morning. No complaints. She reports that her left-sided chest pain has greatly improved with [place]. Carotid ultrasound yesterday revealed 50-79% narrowing of her right internal carotid artery. Today, we will order carotid CTA. She continues to be anemic this morning. H&H 7.5 and 26.3. I suspect that this could possibly be dilutional. Stool negative for occult blood. Pacemaker was interrogated yesterday which checked out okay. No evidence of sustained arrhythmias noted the day of fall. Blood pressure has greatly improved with IV hydration. Orthostatic vital signs did not reveal any evidence of orthostatic hypotension. At this point, if patient's carotid CT checks out okay patient may be eligible for discharge later this afternoon. Patient has a given a follow-up appointment with Dr. Claudia So in 1 month with EKG and CBC. I will further discuss with Dr. So and await her additional recommendations. 2016 Patient was seen and examined on the telemetry unit. She continues to complain of dizziness and generally does not feel well. I have reviewed her CT neck. CT chest was ordered as per radiology recommendations. Patient appears to be stable from a cardiology standpoint. No further recommendations. We will sign off. Please call if needed. She continues to be anemic this morning after receiving 2 units of blood yesterday. Her stool is negative for occult blood. Patient may benefit from oncology consult. Will defer further workup and management of this to attending. Patient has been given a follow-up appoint with Dr. Claudia So in 1 month at the [facility]. IMPRESSION AND PLAN 1. ATYPICAL CHEST PAIN - Reproducible. I suspect that this is musculoskeletal in nature. Secondary to patient's fall Wednesday evening. This is being appropriately treated with [place] per hospital medicine. This is improving. 2. HISTORY OF CAD - Status post CABG 11 years ago in [facility]. Patient's blood pressure will not allow initiation of beta blockade. She has been noncompliant with lipid lowering agent in the past as this has caused her myalgias. I have checked a lipid panel. I have added low-dose aspirin. Recommend patient take this indefinitely. Historically, patient has had preserved ejection fraction. No need to repeat echocardiogram at this time. 3. TOBACCO ABUSE - Counseled patient on the importance of smoking cessation. 4. PACEMAKER - Chest x-ray reveals good pacemaker lead placement. No hematoma or trauma located to pacemaker pocket. Device was interrogated yesterday. No sustained arrhythmias noted the day of fall. However, she did have a short episode of nonsustained SVT July 03, 2017. Unfortunately, her blood pressure will not allow for initiation of beta blockade. This may be challenged on an outpatient basis. 5. ANXIETY - Stable at present. 6. HYPOTENSION - Resolved. 7. PRESYNCOPE - Patient continues to have some presyncopal symptoms. Suspect that this may be related to her anemia. I will defer workup and management of this to attending. 8. ANEMIA - Patient continues to have ongoing anemia despite blood transfusion yesterday. Still has been a negative for occult blood. Patient may benefit from oncology consult. I will defer further workup and management of this to attending. 9. DEHYDRATION - This has greatly improved with IV hydration. 10. RIGHT INTERNAL CAROTID ARTERY STENOSIS - CTA reviewed. Essentially normal angiography study of the anterior and posterior circulations through the neck with minimal atheromatous changes at the distal left internal carotid artery noted. 11. DYSLIPIDEMIA - Lipid panel has been reviewed. LDL 106. Patient is allergic to atorvastatin. Continue Zetia. Patient will need a repeat lipid panel in 4-6 weeks. Exam (Progress Note) - Constitutional Vitals: Period Temp Pulse Resp BP Sys/Street Pulse Ox Last 24 Hr 97.1 F-99.5 F 57-75 16-181 107-160/53-106 92-99 Exam: General: Appears well with no apparent distress. Pleasant and cooperative. Appears comfortable. HEENT: PERRL, normocephalic, atraumatic. Mucous membranes moist. No jaundice noted. Conjunctiva moist and clear, sclerae anicteric Neck: No JVD/HJR, no thyromegaly or lymphadenopathy noted. Cardiac: Regular rate and rhythm. Patient is slightly tender to pacemaker site. No erythema. No edema. Lungs: Clear to auscultation without accessory muscle use to assist the respiratory pattern. Not requiring oxygen. Abdomen: Soft, bowel sounds normoactive. Nontender and nondistended. No abdominal bruit or thrill noted. No masses noted. Extremities: No clubbing, cyanosis noted. No edema noted. Upper extremity pulses 2+. Lower extremity pulses 2+. Capillary refill less than 3 seconds. Skin: No unusual lesions or rashes. No skin breakdown appreciated. Neuro: Awake, alert and oriented 3. Moves all extremities well without hemiparesis or paralysis. No essential tremor is appreciated. Result/EKG - Labs CBC & BMP: 07/07/17 04:22 07/07/17 04:22 Lab Results: I have reviewed the past 24 hour labs Labs: Laboratory Results - last 24 hr 07/06/17 07/06/17 07/07/17 13:57 13:57 14:48 Anemia Panel Interp See comment Hemoglobin A1 97.9 Hemoglobin A2 2.1 Hemoglobin C Not Reportable Hemoglobin D Not Reportable Hemoglobin E Not Reportable Hemoglobin F (ELP) Not Reportable Hemoglobin G Not Reportable Hemoglobin S Not Reportable Hgb ELP Interp See comment Iron 17 L TIBC 402 % Saturation 4.2 L Blood Type Antibody Screen Antibody Identification Crossmatch 07/07/17 07/07/17 14:48 15:57 Anemia Panel Interp Hemoglobin A1 Hemoglobin A2 Hemoglobin C Hemoglobin D Hemoglobin E Hemoglobin F (ELP) Hemoglobin G Hemoglobin S Hgb ELP Interp Iron TIBC % Saturation Blood Type B POSITIVE B POSITIVE Antibody Screen Positive Antibody Identification Anti-K Crossmatch See Detail Specialty Discharge - Follow Up or Referrals Follow up with: Claudia So MD [Physician] - 08/10/17 2:00 pm (08/10/17 at 2:00 pm. EKG, CBC ) Aquilino Markham DO [Physician] - 2 Weeks <Claudia So - Last Filed: 07/08/17 18:51> Cardiology - PN: Subj Interval history: I have personally interviewed and examined the patient, reviewed the chart and discussed medical decision-making with practitioner Fly. I have read this note and agree with the documentation herein. Exam (Progress Note) - Constitutional Vitals: Period Temp Pulse Resp BP Sys/Street Pulse Ox Last 24 Hr 97.1 F-99.2 F 59-75 16-18 121-161/64-106 92-99 Result/EKG - Labs CBC & BMP: 07/07/17 04:22 07/07/17 04:22 Labs: Laboratory Results - last 24 hr 07/06/17 07/06/17 07/07/17 13:57 13:57 14:48 Anemia Panel Interp See comment Hemoglobin A1 97.9 Hemoglobin A2 2.1 Hemoglobin C Not Reportable Hemoglobin D Not Reportable Hemoglobin E Not Reportable Hemoglobin F (ELP) Not Reportable Hemoglobin G Not Reportable Hemoglobin S Not Reportable Hgb ELP Interp See comment POC Glucose Blood Type B POSITIVE Antibody Screen Positive Antibody Identification Anti-K Crossmatch See Detail 07/08/17 15:33 Anemia Panel Interp Hemoglobin A1 Hemoglobin A2 Hemoglobin C Hemoglobin D Hemoglobin E Hemoglobin F (ELP) Hemoglobin G Hemoglobin S Hgb ELP Interp POC Glucose 90 Blood Type Antibody Screen Antibody Identification Crossmatch
[2017-07-08 16:01] VITALS: BP 161/73
--- NOTE | 2017-07-08 16:28 | Discharge Summary ---
Hospital Course - Hospital Course Hospital Course: 61-year-old white female with history of CAD status post CABG, anxiety, GERD, esophageal stricture, and pacemaker placement admitted by the hospitalist service status post fall with left wall atypical chest pain. We will go ahead and consult cardiology for pacemaker interrogation. Patient did state there was something wrong with the leads on her last admission that she never followed up for. Will also get a left shoulder x-ray to rule out bony abnormality due to her increased pain and decreased shoulder range of motion. Consult physical therapy for evaluation due to patient's complaints of generalized weakness and bilateral upper and lower extremity shakiness causing her to fall. Also checking orthostatics to see if this could be a cause of her weakness and falls. Will control her anxiety with some as needed Ativan, control pain with mild narcotic and simultaneous nausea medication. The patient had stress test with nuclear medicine study. It revealed no evidence of coronary ischemia. The patient's now reached maximum medical benefit and is ready for discharge home and follow-up with Dr. Markham as outpatient. On the day of discharge, the chest is clear and abdomen soft. Patient medications were reconciled upon admission, and again at the time of discharge. The patient was screened for tobacco use and found to be a daily smoker. The patient was given 4 minutes of tobacco avoidance education. The patient's medical decsion maker is [themself], and when asked, they asked to be [Full code]. Discharge Time was 34 minutes, including final examination, evaluation and planning, education, reconciliation of medications, writing prescriptions, coordinating care with clinical case manager, and preparing discharge documentation. - Time spent with patient Time with patient DS: Greater than 30 minutes Diagnosis - Discharge Diagnosis (1) Atypical chest pain Status: Chronic Specialty Discharge - Follow Up or Referrals Follow up with: Claudia So MD [Physician] - 08/10/17 2:00 pm (08/10/17 at 2:00 pm. EKG, CBC ) Discharge Plan - Discharge Data Disposition: Disch To Home/Self Care Condition at Discharge: Stable Discharge Diet: heart healthy Activity: resume usual activities as tolerated - Discharge Medications New HYDROcodone/ACETAMIN 7.5-325 [[place] 7.5-325] 1 tablet PO Q12HR #10 tablet Aspirin EC Tab 81 mg PO DAILY #100 tablet Ezetimibe [Zetia] 10 mg PO BEDTIME #30 tablet LORazepam TAB [Ativan Tab] 0.5 mg PO BID PRN #60 tablet PRN Reason: Anxiety Continue Pantoprazole Tab [Protonix Tab] 40 mg PO DAILY #30 tablet - Follow Up or Referral Follow Up: Claudia So MD [Physician] - 08/10/17 2:00 pm (08/10/17 at 2:00 pm. EKG, CBC ) Aquilino Markham DO [Physician] - 2 Weeks - Forms/Instructions Instructions: Syncope (DC), Anemia (DC) Exam - Constitutional Vitals: Period Temp Pulse Resp BP Sys/Street Pulse Ox Last 24 Hr 97.1 F-99.5 F 59-75 16-181 107-161/54-106 92-99 Discharge Results Procedures and tests throughout hospitalization: Pending Orders 07/06/17 17:10 Occult Blood, Stool Routine 07/08/17 14:07 CT chest w con Routine Labs on day of discharge: Labs from last 24 hours 07/08/17 07/07/17 07/06/17 15:33 14:48 13:57 Anemia Panel Interp Hemoglobin A1 97.9 Hemoglobin A2 2.1 Hemoglobin C Not Reportable Hemoglobin D Not Reportable Hemoglobin E Not Reportable Hemoglobin F (ELP) Not Reportable Hemoglobin G Not Reportable Hemoglobin S Not Reportable Hgb ELP Interp See comment POC Glucose 90 Blood Type B POSITIVE Antibody Screen Positive Antibody Identification Anti-K Crossmatch See Detail 07/06/17 13:57 Anemia Panel Interp See comment Hemoglobin A1 Hemoglobin A2 Hemoglobin C Hemoglobin D Hemoglobin E Hemoglobin F (ELP) Hemoglobin G Hemoglobin S Hgb ELP Interp POC Glucose Blood Type Antibody Screen Antibody Identification Crossmatch DS: Provider Date of admission: 07/05/17 21:22 Primary care physician: . No PCP Attending physician on admission: Sanjay Chino MD Consults: 07/05/17 22:59 Consult to Dietitian [CONS] Routine Reason for Dietitian: Dietary Consult 07/06/17 08:43 Consult to Physician [CONS] Routine Comment: pain in pacemaker from fall, frequent falls Consulting Provider: Cardiology - [facility] When should Consulting Provider be notified: Now Person Notified: Alyse Date Notified: 07/06/17 Time Notified: 09:55 07/06/17 08:46 Consult to Physical Therapy [CONS] Routine Reason for Physical Therapy: Evaluate and Treat 07/06/17 10:25 Consult to Occupational Therapy [CONS] Routine Reason for Occupational Therapy: Evaluate and Treat 07/07/17 10:02 Consult to Case Mgmt/Social Srvs [CONS] Routine Reason for Case Mgmt/Social Srvs: Home Health Consult Comment: Med management,education,nursing,PT eval and treat. 07/07/17 15:02 Consult to Case Mgmt/Social Srvs [CONS] Routine Reason for Case Mgmt/Social Srvs: Rehab Discharging clinician: Franco Lee MD
== END 2017-07-08 18:12 | disposition home or self-care (01) ==
LOC: N.ED 17:44 → N.EDINP 17:44 → SUATTDRO 21:22 → N.TELES 21:47
PROVIDERS: ADMIT Emergency Medicine; ATTEND Internal Medicine